=== PATIENT | male | born 1950 ===

== ENCOUNTER 2018-05-22 10:08 | Emergency (ER) | payer OTHER, MEDICARE ==
[~2018-05-22] VITALS: Ht 185.4 cm; Wt 99.8 kg
[2018-05-22 10:12] VITALS: BP 178/92
--- NOTE | 2018-05-22 11:28 | ED GENERAL ADULT ---
History of Present Illness General Chief Complaint: General Adult Stated Complaint: SIB WALKIN/PCP FOR SYMPTOMATIC HYPERTENSION Source: patient Exam Limitations: no limitations Vital Signs & Intake/Output Vital Signs & Intake/Output Vital Signs Date Time Temp Pulse Resp B/P B/P Pulse O2 O2 Flow FiO2 Mean Ox Delivery Rate 05/22 1012 97.8 62 15 178/92 97 Room Air Room Air Allergies Coded Allergies: No Known Allergies (05/22/18) Triage Note: PT SENT TO ED BY WALK-IN CLINIC FOR SYMPTOMATIC HYPERTENSION. PT SAW PCP LAST WEEK AND TOLD HE HAD HIGH BP READING. THEN SAW WALK IN CLINIC TODAY FOR TINGLING AND HEADACHE TO CROWN OF HEAD. DENIES CHANGE IN VISION. REPORTS 1 EPISODE OF FEELING OFF BALANCE LAST NIGHT. Triage Nurses Notes Reviewed? yes HPI: Patient is a 59-year-old male with no significant past medical history who presented to the emergency department today after having been to urgent care with a mild headache. He was found at that time to be hypertensive in the once 170s/110s; they had called his primary physician Dr. Dowling and described his symptoms which were nonspecific headache that he could not accurately describe. He was understandably referred to emergency department for reevaluation. However here, the patient has a blood pressure initially of 178 systolic but of my reassessment 150 and is now asymptomatic. He has no headache and I have low concern for hypertensive ICH, and he has no other symptoms to suggest other end organ damage. Well-appearing at the time of my initial encounter. Past History Travel History Traveled to [place] past 21 day No Medical History Any Pertinent Medical History? none Neurological: NONE EENT: NONE Cardiovascular: NONE Respiratory: NONE Gastrointestinal: NONE Hepatic: NONE Renal: NONE Musculoskeletal: NONE Psychiatric: NONE Endocrine: NONE Blood Disorders: NONE Cancer(s): NONE [employer]/Reproductive: NONE Surgical History Surgical History: none Psychosocial History What is your primary language Kazakh Tobacco Use: Quit >30 days ago ETOH Use: denies use Illicit Drug Use: denies illicit drug use Family History Hx Contributory? No Review of Systems Review of Systems Constitutional: Reports: no symptoms. Neurological/Psychological: Reports: headache. All Other Systems: Reviewed and Negative Physical Exam Physical Exam General Appearance: well developed/nourished, no apparent distress, alert, awake , comfortable Comments: HEENT: Inspection of the head reveals a normocephalic cranium with no signs of trauma. Ophtho: Extraocular muscles are intact and pupils are equal and reactive to light bilaterally with no afferent pupillary defect. The sclera are noninjected , and there is no obvious discharge. Neck: The trachea is midline, there is no obvious asymmetry or mass over the thyroid, and there is no midline cervical spine tenderness Respiratory: The lungs are clear and equal to auscultation bilaterally without wheezes, rales, or rhonchi. The patient exhibits no signs of labored breathing. Cardiac: Regular rhythm and non-tachycardic without appreciable murmurs on auscultation. No obvious JVD. GI: Examination of the abdomen reveals no significant focal tenderness in any of the four quadrants. There is negative Sosa's sign, negative McBurney's point tenderness, negative Hamlet sign, negative Nuñez-Conway sign, and no signs of peritonitis whatsoever on percussion or deep palpation. The skin is intact with no sign of trauma or infection. : Deferred Neuro: The patient is oriented to person, place, time, and situation, with no obvious focal motor deficits. There were no sensory deficits, and the patient exhibit purposeful movement of all 4 extremities. Cranial nerves II through XII are intact, and gait is normal. Behavioral: Calm and cooperative Dermatologic: Dermatologic examination reveals no diffuse rashes or exanthems, no petechiae, no ecchymoses, and no other signs of erythema or infection. Core Measures ACS in differential dx? No CVA/TIA Diagnosis: No Sepsis Present: No Sepsis Focused Exam Completed? No Progress Differential Diagnoses I considered the following diagnoses in my evaluation of the patient: Hypertension, hypertensive emergency, pheochromocytoma, intracranial hemorrhage, posterior reversible encephalopathy syndrome, hypertensive headache Plan of Care: Orders Procedure Date/time Status EKG 05/22 1016 Active Initial ED EKG: normal axis, normal intervals, normal p-waves, normal QRS complex Comments: Patient presents for hypertension which has now lessened, with associated headache which has now resolved. Currently his blood pressure is in 150s and he is asymptomatic. This is different than the story from urgent care which was a pressure of 170/110 with headache. Given his improvement, and his negative examination, I have discussed his case with Dr. Armstrong his PCP who agrees with my plan to defer performing labs and irradiating him with a head CT for the time being, and instead having him reevaluated in the office later this week for reassessment of his hypertension. The patient agrees with this plan and is relieved to avoid workup. He understands my copious return instructions for any worsening headache, blurred vision, nausea, vomiting, or other symptoms that he may develop. Medical screening examination otherwise negative, patient stable at time of discharge. Departure Departure Time of Disposition: 1131 Disposition: HOME OR SELF CARE Condition: Stable Clinical Impression Primary Impression: Hypertension Qualifiers: Hypertension type: unspecified Qualified Code: I10 - Essential ( primary) hypertension Referrals: Bard BARNETT,Burak Gonsalez Additional Instructions: Please follow-up with Dr. Armstrong for blood pressure reassessment and reevaluation this week as planned. Departure Forms: Customer Survey General Discharge Information Critical Care Note Critical Care Note Critical Care Time: non-applicable
== END 2018-05-22 11:46 ==
LOC: ERH 10:08
DX: I10 Essential (primary) hypertension (principal); Z87.891 Personal history of nicotine dependence
CPT/HCPCS: 93005; 93010